=== PATIENT | female | born 1960 | race Caucasian/White ===

== ENCOUNTER 2018-10-12 01:59 | Emergency (ER) | payer MEDICARE, MEDICAID ==
[~2018-10-12] VITALS: Ht 170.2 cm; Wt 78.0 kg
[2018-10-12 02:35] LABS: BASOPHILS # (AUTO) 0.01 x10^3/uL (0-0.1); BASOPHILS % (AUTO) 0 % (0-1); EOSINOPHILS # (AUTO) 0.05 x10^3/uL (0-0.4); EOSINOPHILS % (AUTO) 0 % (1-7); LYMPHOCYTES # (AUTO) 1.18 x10^3/uL (1-3.4); LYMPHOCYTES % (AUTO) 7 % (22-44); MD NO; MEAN CORPUSCULAR HEMOGLOBIN 30.6 pg (27.0-34.8); MEAN CORPUSCULAR HGB CONC 33.6 g/dL (32.4-35.8); MEAN PLATELET VOLUME 7.7 fL (7.4-10.4); MONOCYTES # (AUTO) 0.49 x10^3/uL (0.2-0.8); MONOCYTES % (AUTO) 3 % (2-9); NEUTROPHILS # (AUTO) 15.82 x10^3/uL (1.8-6.8); NEUTROPHILS % (AUTO) 90 % (42-75); PLATELET COUNT 353 x10^3/uL (130-400); RED BLOOD COUNT 5.03 x10^6/uL (3.82-5.3); RED CELL DISTRIBUTION WIDTH 12.8 % (9.6-15.2)
[2018-10-12 02:46] LABS: ALANINE AMINOTRANSFERASE 26 U/L (12-78); ALBUMIN 4.2 g/dL (3.4-5.0); ANION GAP 11 mmol/L (5-15); CALCIUM 9.4 mg/dL (8.5-10.1); CHLORIDE 103 mmol/L (98-107); CREATININE 0.93 mg/dL (0.55-1.02)
[2018-10-12 02:48] LABS: ALKALINE PHOSPHATASE 104 U/L (45-117); BILIRUBIN,TOTAL 0.7 mg/dL (0.2-1.0); TOTAL PROTEIN 7.7 g/dL (6.4-8.2)
[2018-10-12] MEDS ORDERED: KETOROLAC 30 MG/1 ML ONE (02:58)
[2018-10-12] MEDS ORDERED: KETOROLAC 30 MG/1 ML IM ONE (03:00)
[2018-10-12 03:31] LABS: CULTURE INDICATED? YES; MICROSCOPIC INDICATED
[2018-10-12] MEDS ORDERED: CEFDINIR 300 MG CAPSULE PO ONE (04:30)
[2018-10-12] MEDS ORDERED: CEFDINIR 300 MG CAPSULE ONE (04:36)
[2018-10-12 04:52] VITALS: BP 112/84
== END 2018-10-12 04:54 | disposition home or self-care (01) ==
LOC: ED 03:57
DX: N39.0 Urinary tract infection, site not specified (principal); R10.13 Epigastric pain; I10 Essential (primary) hypertension; E78.00 Pure hypercholesterolemia, unspecified; E11.9 Type 2 diabetes mellitus without complications; E78.5 Hyperlipidemia, unspecified
CPT/HCPCS: 36415; 76700; 80053; 81001; 83690; 85025; 87077; 87086; 96372; 99284; J1885; 87186

== ENCOUNTER 2019-01-16 15:04 | Inpatient (IN) | payer MEDICARE, MEDICAID ==
[~2019-01-16] VITALS: Ht 170.2 cm; Wt 99.0 kg
[2019-01-16 15:34] LABS: HCG UR SG 1.018 (1.003-1.030); MICROSCOPIC NOT IND
[2019-01-16 15:43] LABS: CULTURE INDICATED? NO
[2019-01-16] MEDS ORDERED: ONDANSETRON 2MG/ML, 2ML ONE (15:49)
[2019-01-16] MEDS ORDERED: MORPHINE SULFATE 4 MG/ML, 1ML ONE ×2 (15:49→18:01)
[2019-01-16] MEDS ORDERED: ONDANSETRON 2MG/ML, 2ML IVPush ONE (16:00)
[2019-01-16] MEDS ORDERED: SODIUM CHLORIDE FLUSH 10ML SYR IVF ONE (16:00)
[2019-01-16] MEDS: MORPHINE SULFATE 4 MG/ML, 1ML IVPush PRN ×2 (16:03→18:07)
--- NOTE | 2019-01-16 16:05 | NUR ---
IV ESTABSLISHED, LABS DRAWN. PT MEDICATED PER EMAR FOR 9/10 PAIN AND NAUSEA
[2019-01-16 16:17] LABS: BASOPHILS # (AUTO) 0.02 x10^3/uL (0-0.1); BASOPHILS % (AUTO) 0 % (0-1); EOSINOPHILS # (AUTO) 0.19 x10^3/uL (0-0.4); EOSINOPHILS % (AUTO) 2 % (1-7); LYMPHOCYTES % (AUTO) 18 % (22-44); MD NO; MEAN CORPUSCULAR HEMOGLOBIN 30.5 pg (27.0-34.8); MEAN CORPUSCULAR HGB CONC 33.2 g/dL (32.4-35.8); MEAN CORPUSCULAR VOLUME 91.9 fL (80-100); MEAN PLATELET VOLUME 7.9 fL (7.4-10.4); MONOCYTES # (AUTO) 0.61 x10^3/uL (0.2-0.8); MONOCYTES % (AUTO) 5 % (2-9); NEUTROPHILS # (AUTO) 9.18 x10^3/uL (1.8-6.8); NEUTROPHILS % (AUTO) 75 % (42-75); PLATELET COUNT 354 x10^3/uL (130-400); RED BLOOD COUNT 4.74 x10^6/uL (3.82-5.3); RED CELL DISTRIBUTION WIDTH 12.9 % (9.6-15.2)
[2019-01-16 16:27] LABS: ALANINE AMINOTRANSFERASE 23 U/L (12-78); ALBUMIN 4.1 g/dL (3.4-5.0); ANION GAP 5 mmol/L (5-15); CALCIUM 8.9 mg/dL (8.5-10.1); CHLORIDE 107 mmol/L (98-107); CREATININE 0.76 mg/dL (0.55-1.02)
[2019-01-16 16:30] LABS: ALKALINE PHOSPHATASE 98 U/L (45-117); BILIRUBIN,TOTAL 0.3 mg/dL (0.2-1.0); TOTAL PROTEIN 7.2 g/dL (6.4-8.2)
--- NOTE | 2019-01-16 16:47 | NUR ---
PT TO CT. ON 2L BY NC FOR SUPPORT WHILE OFF MONITORING
[2019-01-16] MEDS ORDERED: POTASSIUM CHLORIDE 20 MEQ in D5%-0.45% NACL 1,000 ML IV ONE (17:36)
[2019-01-16] MEDS ORDERED: METF500T17 PO (17:57)
[2019-01-16] MEDS ORDERED: RISP1TAB3 PO (17:57)
[2019-01-16] MEDS ORDERED: LOSA1TAB19 PO (17:57)
[2019-01-16] MEDS ORDERED: MORPHINE SULFATE 4 MG/ML, 1ML IVPush PRN (18:00)
[2019-01-16] MEDS ORDERED: SODIUM CHLORIDE FLUSH 10ML SYR IVF PRN (18:00)
[2019-01-16] MEDS ORDERED: ONDANSETRON 2MG/ML, 2ML IVPush PRN (18:00)
--- NOTE | 2019-01-16 18:09 | NUR ---
KETTY RN: PT MEDICATED FOR 06/19 PAIN, VSS. FLUIDS STARTED PER JAN. CALL LIGHT WITHIN REACH.
--- NOTE | 2019-01-16 18:25 | NUR ---
REPORT TO [facility] PEDERSON ON FLOOR. PT PREPARED FOR TRANSPORT
--- NOTE | 2019-01-16 18:26 | NUR ---
PT'S SON CONTACTED CARLOS ([phone]) TO UPDATED TO POC. ADDITIONAL CONTACT INFORMATION JEB (SON): [phone] GERMAN (HOME): [phone]
[2019-01-16 19:49] VITALS: BP 105/46
[2019-01-17 02:35] VITALS: BP 132/76
[2019-01-17] MEDS ORDERED: BUPIVACAINE/PF-EPI 0.5% 1:200K ONE (07:33)
[2019-01-17 08:09] VITALS: BP 133/83
[2019-01-17] MEDS ORDERED: MIDAZOLAM 1 MG/ML, 2ML ONE (08:30)
[2019-01-17] MEDS ORDERED: FENTANYL PF 250 MCG/5ML ONE (08:30)
[2019-01-17] MEDS ORDERED: LIDOCAINE 2%, 6 ML JEL.PF.APP MM ONE (08:57)
[2019-01-17] MEDS ORDERED: PHENYLEPHRINE 10 MG/ML ONE (09:07)
[2019-01-17] MEDS ORDERED: BUPIVACAINE/PF-EPI 0.5% 1:200K INFIL ONE (09:26)
[2019-01-17] MEDS ORDERED: LABETALOL 5MG/ML, 20ML IV PRN (09:30)
[2019-01-17] MEDS ORDERED: MEPERIDINE/PF 25MG/0.5ML IVPush PRN (09:30)
[2019-01-17] MEDS ORDERED: ONDANSETRON 2MG/ML, 2ML IV PRN (09:30)
[2019-01-17] MEDS ORDERED: HYDROmorphone 2 MG/ML, 1ML IVPush PRN (09:30)
[2019-01-17] MEDS ORDERED: SCOPOLAMINE PATCH, 1.5MG PATCH.TD72 TD PRN (09:30)
[2019-01-17] MEDS ORDERED: OXYcodone 5 MG/5 ML ORAL.SOL UDC PO PRN (09:30)
[2019-01-17] MEDS ORDERED: FENTANYL PF 100 MCG/2ML IV PRN (09:30)
[2019-01-17] MEDS ORDERED: PROMETHAZINE 25 MG/ML, 1ML IV PRN (09:30)
[2019-01-17] MEDS ORDERED: hydrALAzine 20 MG/ML, 1ML IV PRN (09:30)
[2019-01-17] MEDS ORDERED: ACETAMINOPHEN 325 MG TABLET PO PRN (09:30)
[2019-01-17] MEDS ORDERED: ALBUTEROL/IPRATROPIUM 2.5MG/0.5MG, 3 ML NPPB PRN (09:30)
[2019-01-17] MEDS ORDERED: MIDAZOLAM 1 MG/ML, 2ML IV PRN (09:30)
[2019-01-17] MEDS ORDERED: KETOROLAC 30 MG/1 ML ONE (09:34)
[2019-01-17] MEDS ORDERED: EPHEDRINE 50 MG/ML, 1ML ONE (09:43)
[2019-01-17] MEDS ORDERED: ONDANSETRON 2MG/ML, 2ML ONE (09:47)
[2019-01-17] MEDS ORDERED: CEFAZOLIN 1,000 MG ONE (09:47)
[2019-01-17] MEDS ORDERED: SUCCINYLCHOLINE 20 MG/ML, 10ML ONE (09:47)
[2019-01-17] MEDS ORDERED: DEXAMETHASONE 4 MG/ML, 1ML ONE (09:47)
[2019-01-17] MEDS ORDERED: PROPOFOL 10 MG/ML, 20ML ONE (09:47)
[2019-01-17] MEDS ORDERED: OXYcodone 5 MG/5 ML ORAL.SOL UDC ONE (10:09)
[2019-01-17] MEDS ORDERED: FENTANYL PF 100 MCG/2ML ONE (10:16)
[2019-01-17] MEDS ORDERED: HYDROcodone/APAP 5/325 TABLET PO PRN (12:00)
[2019-01-17] MEDS ORDERED: HYDR-3240 PO (13:28)
[2019-01-17 15:03] VITALS: BP 133/80
== END 2019-01-17 15:15 | disposition home or self-care (01) | DRG 353 ==
LOC: ED 17:12 → EDIP 17:36 → 4NOR 19:30
PROVIDERS: ADMIT Surgery; ATTEND Surgery
PROC: 0WUF0JZ Supplement Abdominal Wall with Synthetic Substitute, Open Approach (ICD-10-PCS; principal; 2019-01-17 09:30)
DX: K42.0 Umbilical hernia with obstruction, without gangrene (principal); R65.11 Systemic inflammatory response syndrome (SIRS) of non-infectious origin with acute organ dysfunction; E11.9 Type 2 diabetes mellitus without complications; E78.00 Pure hypercholesterolemia, unspecified; E78.5 Hyperlipidemia, unspecified; F17.210 Nicotine dependence, cigarettes, uncomplicated; I10 Essential (primary) hypertension
CPT/HCPCS: 36415; 74177; 80053; 80307; 81003; 81025; 83605; 83690; 85025; 93005; 96374; 96375; G0378; J0690; J1100; J1885; J2250; J2405; J2704; J3010; J3480; C1781; J0330; J2370

== ENCOUNTER 2019-07-19 10:16 | Outpatient (CLI) | payer MEDICARE, MEDICAID ==
[~2019-07-19 10:16] MED LIST: HYDR-3240 PO; LOSA1TAB19 PO; METF500T17 PO; RISP1TAB3 PO
== END 2019-07-19 23:59 | disposition home or self-care (01) ==
LOC: CFH 10:16
PROVIDERS: ATTEND Family Medicine
DX: Z12.31 Encounter for screening mammogram for malignant neoplasm of breast (principal)
CPT/HCPCS: 77063; 77067